=== PATIENT | female | born 1965 | race Caucasian/White ===

== ENCOUNTER 2021-04-06 11:19 | Emergency (ER) | payer OTHER ==
[~2021-04-06] VITALS: Ht 167.6 cm; Wt 80.7 kg
[2021-04-06] MEDS ORDERED: LIDOcaine 5% patch TP STA (12:44)
[2021-04-06] MEDS ORDERED: acetaminophen w/codeine (60MG) #4 tablet PO STA (12:44)
[2021-04-06] MEDS ORDERED: ketorolac tromethamine 15mg/ml inj. IM ONE (12:45)
[2021-04-06] MEDS ORDERED: acetaminophen w/codeine (30MG) #3 tablet PO STA ×2 (12:55→13:11)
[2021-04-06] MEDS ORDERED: LIDO700A32 TOP (13:40)
[2021-04-06 14:03] VITALS: BP 148/89
== END 2021-04-06 14:08 | disposition home or self-care (01) ==
LOC: ER 11:20
DX: S89.92XA Unspecified injury of left lower leg, initial encounter (principal); M54.9 Dorsalgia, unspecified; I50.9 Heart failure, unspecified; W18.39XA Other fall on same level, initial encounter; Y93.89 Activity, other specified; Y92.89 Other specified places as the place of occurrence of the external cause; Y99.8 Other external cause status
CPT/HCPCS: 71045; 96372; 99284; J1885; 99283